=== PATIENT | female | born 1980 | race Caucasian/White ===

== ENCOUNTER 2019-08-02 06:32 | Inpatient (IN) ==
[2019-08-02] MEDS ORDERED: LR 1000 ML IV 1,000 ML IV ONE (06:53)
[2019-08-02] MEDS ORDERED: NS 100 ML IV 100 ML IV ONE (06:54)
[2019-08-02] MEDS ORDERED: ANCEF VIAL 1 GRAM ONE (06:54)
[2019-08-02] MEDS ORDERED: D5 1/2 NS 1000 ML 1,000 ML IV ONE (06:55)
[2019-08-02] MEDS ORDERED: ANCEF VIAL 1 GRAM IVP ONE (07:03)
[2019-08-02] MEDS ORDERED: D5 1/2 NS 1000 ML 1,000 ML IV SCH (07:03)
[2019-08-02] MEDS ORDERED: DILAUDID INJ ONE (07:18)
[2019-08-02] MEDS ORDERED: PITOCIN ONE (08:35)
[2019-08-02] MEDS ORDERED: VERSED ONE (08:35)
[2019-08-02] MEDS ORDERED: EPHEDRINE SULFATE INJ ONE (08:35)
[2019-08-02 08:44] LABS: BILIRUBIN,URINE NEGATIVE (NEGATIVE); BLOOD/HEMOGLOBIN,URINE 1+ (NEGATIVE); GLUCOSE, URINE NEGATIVE (NEGATIVE); KETONES,URINE NEGATIVE (NEGATIVE); LEUKOCYTE ESTERASE ,URINE NEGATIVE (NEGATIVE); NITRITES,URINE NEGATIVE (NEGATIVE); PROTEIN,URINE NEGATIVE (NEGATIVE); UROBILINOGEN,URINE NORMAL (NORMAL)
[2019-08-02] MEDS ORDERED: DILAUDID INJ IVP PRN (08:45)
[2019-08-02] MEDS ORDERED: BENADRYL INJ 50 MG VIAL IVP PRN ×2 (08:45→09:39)
[2019-08-02] MEDS ORDERED: REGLAN INJ 10 MG VIAL IVP PRN ×2 (08:45→09:39)
[2019-08-02] MEDS ORDERED: ZOFRAN INJ 4 MG VIAL IVP PRN ×2 (08:45→09:39)
[2019-08-02] MEDS ORDERED: PHENERGAN INJ 25 MG IM PRN ×2 (08:45→15:24)
[2019-08-02 08:47] LABS: APPEARANCE,URINE SLIGHTLY HAZY (CLEAR); COLOR,URINE YELLOW (YELLOW)
[2019-08-02 08:55] LABS: RBC,URINE 0-2 /HPF (0-3)
[2019-08-02 08:56] LABS: AMORPHOUS SEDIMENT,UR 1+ /HPF (NEGATIVE); BACTERIA,URINE NEGATIVE /HPF (NEGATIVE); RENAL EPITHELIAL CELLS,URINE RARE /HPF (NEGATIVE); SQUAMOUS EPITHELIAL CELL,UR RARE /HPF (NEGATIVE)
[2019-08-02] MEDS ORDERED: D5 1/2 NS 1L W PITOCIN 20 UNITS/L 20 UNITS/1,000 ML BAG IV ONE (09:21)
[2019-08-02] MEDS ORDERED: D5 1/2 NS 1000 ML 1,000 ML with PITOCIN 20 UNITS IV SCH ×2 (09:39)
[2019-08-02] MEDS ORDERED: ADACEL or BOOSTRIX TDaP VACCINE IM ONE (09:39)
[2019-08-02] MEDS ORDERED: TORADOL 30 MG VIAL IVP PRN (09:39)
[2019-08-02] MEDS ORDERED: NARCAN INJ IVP PRN (09:39)
[2019-08-02] MEDS ORDERED: MYLICON TAB 80 MG CHEW PO PRN (09:39)
[2019-08-02] MEDS ORDERED: PERCOCET TAB 5/325 MG PO PRN (09:39)
[2019-08-02] MEDS: PRENATAL PLUS PO SCH (11:15)
[2019-08-02] MEDS: ZANTAC PO SCH ×2 (11:16→21:29)
[2019-08-03 04:59] LABS: HEMATOCRIT 29.3 % (36.0-47.0); HEMOGLOBIN 9.8 g/dL (12.0-16.0)
[2019-08-03] MEDS ORDERED: PERCOCET TAB 5/325 MG PO PRN (07:16)
[2019-08-03] MEDS: PRENATAL PLUS PO SCH (08:15)
[2019-08-03] MEDS: ZANTAC PO SCH ×2 (08:15→20:49)
[2019-08-03] MEDS: COLACE CAP 100 MG PO SCH ×2 (08:16→20:49)
[2019-08-03] MEDS: MOTRIN TAB 800 MG PO PRN ×3 (08:16→22:54)
[2019-08-03] MEDS ORDERED: ADACEL or BOOSTRIX TDaP VACCINE IM ONE (12:45)
[2019-08-03] MEDS: BACTROBAN TOPICAL OINT TOP SCH ×2 (13:39→21:00)
[2019-08-04] MEDS: BACTROBAN TOPICAL OINT TOP SCH (05:08)
[2019-08-04] MEDS ORDERED: DEPO-PROVERA CONTRACEPTIVE INJ IM ONE ×2 (07:14→09:55)
[2019-08-04] MEDS: PRENATAL PLUS PO SCH (08:18)
[2019-08-04] MEDS: COLACE CAP 100 MG PO SCH (08:18)
[2019-08-04] MEDS: ZANTAC PO SCH (08:18)
[2019-08-04] MEDS: MOTRIN TAB 800 MG PO PRN (08:18)
[2019-08-04 14:04] VITALS: BP 114/80
== END 2019-08-04 12:05 | disposition home or self-care (01) | DRG 788 ==
LOC: LD 06:32 → MED/SURG 09:34
PROVIDERS: ADMIT Specialist; ATTEND Specialist
DX: O99.613 Diseases of the digestive system complicating pregnancy, third trimester; Z85.51 Personal history of malignant neoplasm of bladder; Z3A.39 39 weeks gestation of pregnancy; O99.89 Other specified diseases and conditions complicating pregnancy, childbirth and the puerperium; Z23 Encounter for immunization; O64.1XX0 Obstructed labor due to breech presentation, not applicable or unspecified; Z37.0 Single live birth
CPT/HCPCS: 36415; 80048; 81001; 85014; 85018; 85025; 85610; 85730; 86592; 86850; 86900; 86901; 90715; A4216; A4222; S0197; J0690; J1050; J1170; J2250; J2405; J2590; J2765; J3490; J7050; J7120; S5010